=== PATIENT | male | born 1955 | race Caucasian/White ===

== ENCOUNTER 2022-05-30 12:48 | Emergency (ER) | payer MEDICARE, MEDICAID ==
[2022-05-30 16:36] VITALS: BP 131/65; PULSE 84
== END 2022-05-30 16:36 | disposition home or self-care (01) ==
LOC: MW.ED 12:48
DX: S49.91XA Unspecified injury of right shoulder and upper arm, initial encounter (principal); W01.198A Fall on same level from slipping, tripping and stumbling with subsequent striking against other object, initial encounter
CPT/HCPCS: 73030-26-RT; 73030-RT; 99283

== ENCOUNTER 2025-03-22 09:06 | Day surgery (SDC) | payer MEDICARE, OTHER ==
[~2025-03-22 09:06] MED LIST: Sodium Chloride 0.9% 10 ML Syringe FLUSH PRN; Sodium Chloride 0.9% 2.5 ML Syringe FLUSH PRN; Sodium Chloride 0.9% 20 ML SDV IV PRN
[2025-03-22] MEDS: Lactated Ringers 1,000 ML IV SCH (09:40)
[2025-03-22] MEDS ORDERED: propofoL 500 MG/50 ML 50 ML ONE (10:17)
[2025-03-22] MEDS ORDERED: Lidocaine 2% 5 ML SDV ONE (10:18)
[2025-03-22 12:10] VITALS: BP 149/68; PULSE 74
== END 2025-03-22 11:55 | disposition home or self-care (01) ==
LOC: MW.SDS 09:06
PROVIDERS: ATTEND Surgery
DX: Z12.11 Encounter for screening for malignant neoplasm of colon (principal); K57.30 Diverticulosis of large intestine without perforation or abscess without bleeding; Z80.0 Family history of malignant neoplasm of digestive organs; I10 Essential (primary) hypertension; E78.00 Pure hypercholesterolemia, unspecified; Z79.899 Other long term (current) drug therapy
CPT/HCPCS: G0105; J2003; J2704; J7120